=== PATIENT | female | born 1975 | race Caucasian/White ===

== ENCOUNTER 2024-04-08 08:03 | Inpatient (IN) | payer OTHER ==
[~2024-04-08] VITALS: Ht 157.5 cm; Wt 81.3 kg
[2024-04-08 08:05] VITALS: O2SAT 98
[2024-04-08 08:47] LABS: BASOPHILS % 0.6 % (0.0-2.0); EOSINOPHILS % 2.6 % (0.0-5.0); HEMATOCRIT. 42.3 % (36.0-48.0); HEMOGLOBIN. 14.5 g/dL (12.0-16.0); LYMPHOCYTES % 14.1 % (20.0-50.0); MEAN CORPUSCULAR HGB CONC 34.4 g/dL (31.0-37.0); MEAN CORPUSCULAR VOLUME 95.9 fL (81.0-99.0); MEAN PLATELET VOLUME 8.2 fl (7.4-10.4); MONOCYTES % 6.2 % (2.0-8.0); NEUTROPHILS % 76.5 % (40.0-76.0); PLATELET 224 x1000/uL (130-400); RED BLOOD CELL COUNT 4.41 mill/uL (4.2-5.4); WHITE BLOOD COUNT 9.8 x1000/uL (4.5-11.0)
[2024-04-08 08:53] LABS: POTASSIUM 3.3 mEq/L (3.5-5.1)
[2024-04-08 08:54] LABS: CALCIUM 9.8 mg/dL (8.7-10.4)
[2024-04-08 09:09] LABS: HCG SCREEN NEGATIVE
[2024-04-08 09:27] LABS: TROPONIN I HIGH SENSITIVITY 31 ng/L (3.0-34)
[2024-04-08 09:28] LABS: ALANINE AMINOTRANSFERASE 22 IU/L (10-49); ALBUMIN 4.6 g/dL (3.2-4.8); ASPARTATE AMINOTRANSFERASE 23 IU/L (<34); BILIRUBIN DIRECT 0.2 mg/dL (<=3.0); BILIRUBIN TOTAL 0.9 mg/dL (0.1-1.0); PROTEIN TOTAL 7.7 g/dL (6.0-8.3)
[2024-04-08] MEDS: LACTATED RINGERS 1,000 ML IV SCH (09:44)
[2024-04-08] MEDS: ONDANSETRON HCL 4MG/2ML INJ IV ONE (09:45)
[2024-04-08] MEDS: ACETAMINOPHEN 325MG TABLET PO ONE (09:45)
[2024-04-08] MEDS ORDERED: ONDANSETRON HCL 4MG/2ML INJ IV PRN (12:00)
[2024-04-08] MEDS ORDERED: ACETAMINOPHEN 325MG TABLET PO PRN (12:00)
[2024-04-08 12:07] LABS: TROPONIN I HIGH SENSITIVITY 36 ng/L (3.0-34)
[2024-04-08] MEDS: POTASSIUM CHLORIDE 20MEQ TABLET SR PO NR (13:50)
[2024-04-08 16:15] VITALS: BP_SYST 105; BP_SYST 89; BP_SYST 92; BP_DIAS 54; BP_DIAS 55; BP_DIAS 66; PULSE 74; RESP 18; TEMP 36.61404; O2SAT 97
[2024-04-08 16:30] VITALS: BP 105/66; PULSE 74; RESP 18; TEMP 36.6404
[2024-04-08 17:20] LABS: CLARITY URINE CLEAR (CLEAR); COLOR URINE YELLOW (YELLOW); GLUCOSE URINE NEGATIVE (NEGATIVE); KETONES URINE NEGATIVE (NEGATIVE); LEUKOCYTE ESTERASE URINE NEGATIVE (NEGATIVE); NITRITE URINE NEGATIVE (NEGATIVE); OCCULT BLOOD URINE NEGATIVE (NEGATIVE); PH URINE 7.5 (4.5-8.0); PROTEIN URINE NEGATIVE (NEGATIVE); UROBILINOGEN URINE 0.2 E.U./dL (0.2-1.0)
[2024-04-08 22:14] VITALS: BP_SYST 90; BP_SYST 98; BP_DIAS 56; PULSE 74; RESP 18; TEMP 36.44736; O2SAT 98
[2024-04-09 04:00] VITALS: BP 115/50; PULSE 95; RESP 18; TEMP 36.22512; O2SAT 98
[2024-04-09 08:00] VITALS: BP 94/58; PULSE 64; RESP 18; TEMP 36.6696; O2SAT 95
[2024-04-09 12:00] VITALS: BP 93/54; PULSE 63; RESP 18; TEMP 36.78072; O2SAT 96
[2024-04-09 14:07] VITALS: BP 93/54; PULSE 63; TEMP 98.2
== END 2024-04-09 15:55 | disposition home or self-care (01) | DRG 48 ==
LOC: ER 08:03 → 5WST 11:03 → EDBEDREQTM 11:06 → EDBEDREQ 11:06 → 7EST 16:33
PROVIDERS: ADMIT Internal Medicine; ATTEND Internal Medicine
DX: G90.89 Other disorders of autonomic nervous system (principal); E86.0 Dehydration; E87.6 Hypokalemia; J06.9 Acute upper respiratory infection, unspecified
CPT/HCPCS: 36415; 71045; 80048; 80076; 81003; 84484; 84703; 85025; 93005; 99285; J2405